=== PATIENT | male | born 1980 | race Caucasian/White ===

== ENCOUNTER 2018-03-19 10:11 | Day surgery (SDC) | payer BC ==
--- NOTE | 2018-03-19 06:30 | HP ---
AMENDED REPORT NOW INCLUDES DESIGNATED COSIGNER PREOPERATIVE HISTORY AND PHYSICAL: DATE OF ADMISSION/SURGERY: 03/19/18 DATE OF OFFICE VISIT/ENCOUNTER: 03/18/18 ATTENDING SURGEON: Xiomara Pickens MD * (DICTATED BY JC TORRES) PROCEDURE: Open reduction internal fixation, right 5th metacarpal. HISTORY OF PRESENT ILLNESS: This is a 37-year-old male, who sustained injury to his right hand about 12 days ago when he punched a desk while playing video games. He initially noticed some deformity and said he somewhat manipulated his finger, which aligned it better; however, he has been having persistent pain, so he went to [facility] today on 03/18/18 and had an x-ray of the hand. X-ray showed a comminuted 5th metacarpal neck fracture with fairly significant displacement. He has been using Advil for pain control. Denies any associated numbness or tingling. This is his dominant hand. He is diabetic and his A1c generally runs between 7.5 and 8. After evaluation by Dr. Pickens and review of x-rays, the patient has consented to proceed with surgical intervention at this time in the form of an ORIF, right 5th metacarpal. PAST MEDICAL HISTORY: 1. Diabetes. 2. Asthma. PAST SURGICAL HISTORY: None. CURRENT MEDICATIONS: 1. Lantus 100 units/mL inject 20 to 25 units b.i.d. 2. NovoLog 100 units/mL before meals per sliding scale. 3. Ventolin asthma inhaler p.r.n. 4. Vitamin D complex. 5. Vitamin D. 6. Nasonex p.r.n. ALLERGIES: Pertussis vaccine causes fever. FAMILY MEDICAL HISTORY: Diabetes, cancer. SOCIAL HISTORY: The patient is employed in [employer]. He is a former smoker. He quit smoking approximately 2 years ago. Prior to that, he smoked from age 19 to age 35, approximately 5 cigarettes a day. He currently is vaping. He denies recreational drug use and does not drink alcohol. REVIEW OF SYSTEMS: Negative for general, cephalic, cardiovascular, respiratory , GI, , other musculoskeletal, integumentary, endocrine, neurologic, and hematologic symptoms. Infectious disease is negative for MRSA, hepatitis C, HIV. PHYSICAL EXAMINATION GENERAL: Well-developed, well-nourished 37-year-old male, in no acute distress. VITAL SIGNS: Height 6 feet 1 inch, weight 220 pounds. Blood pressure 122/78, pulse rate 80. HEENT: Normocephalic, atraumatic. Pupils are equal, round, and reactive to light and accommodation. Throat is clear. NECK: Supple. No palpable lymph nodes. PULMONARY: Lungs are clear to auscultation bilaterally. No wheezes, rales, or rhonchi. CARDIOVASCULAR: Regular rate and rhythm. S1, S2. No murmurs, rubs, or gallops. No edema. ABDOMEN: Positive bowel sounds. Soft, nontender. NEUROLOGICAL: Alert and oriented x3. Cranial nerves II through XII are intact. Sensation is intact to light touch. MUSCULOSKELETAL: On exam of his right hand, he has some resolving ecchymosis on both the dorsal and volar aspect of the hand and the small finger. There is mild swelling. He has an obvious prominence at the fracture site at the 5th metacarpal neck. He lacks a little bit of extension of the finger at the MP joint. He cannot quite make a full fist and there is a slight rotational deformity, but the finger does not underlap under the ring finger. He has tenderness to palpation at the 5th metacarpal neck. Skin is intact. Neurovascular function is intact. IMAGING STUDIES: X-rays, AP, lateral, and oblique of the right hand show a comminuted displaced fracture of the right 5th metacarpal neck. ASSESSMENT: Right 5th metacarpal fracture. PLAN: The patient is scheduled to undergo an open reduction and internal fixation of the right 5th metacarp[address] with Dr. Pickens on 03/19/18. He will return to the office 10 days postop for followup and suture removal. A prescription for Aurora was e-scribed to the patient's pharmacy for postoperative pain management. JC TORRES [id number]/[facility] #: [id number] MTDJohanny
[2018-03-19] MEDS ORDERED: Metoclopramide IV* 5 MG/ML 2 ML VIAL ONE (10:41)
[2018-03-19] MEDS ORDERED: Dexamethasone IV* 4 MG/ML 1 ML (4 MG) ONE (10:41)
[2018-03-19] MEDS ORDERED: ceFAZolin 2 GM PREMIX in ORs 2 GM/50 ML BAG IVPB ONE (10:41)
[2018-03-19] MEDS ORDERED: Midazolam* 1 MG/ML 2 ML VIAL (2 MG) ONE (12:25)
[2018-03-19] MEDS ORDERED: fentaNYL* 50 MCG/ML 2 ML VIAL (100 MCG VIAL) ONE (12:25)
[2018-03-19] MEDS ORDERED: Lidocaine 1% INJ* 10 MG/ML 30 ML SDV ONE (13:00)
[2018-03-19] MEDS ORDERED: ROPIVACAINE 5 MG/ML 30 ML BTL (0.5%) ONE (13:00)
[2018-03-19] MEDS ORDERED: Mepivacaine 2% MPF (20 MG/ML)* 20 ML MPF ONE (13:08)
[2018-03-19] MEDS ORDERED: Mepivacaine 1% (10 MG/ML)* 30 ML SDV ONE (13:09)
[2018-03-19] MEDS ORDERED: Propofol* 10 MG/ML 20 ML BTL IV PUSH ONE ×2 (14:02→14:25)
[2018-03-19 14:53] VITALS: BP 124/73
--- NOTE | 2018-03-20 09:39 | OP ---
DATE OF OPERATION: 03/19/18 [facility] DATE OF : 82 SURGEON: Dr. Pickens. EMBRYOLOGY TEACHER: JC Henderson ANESTHESIA: Block. PRE-OP DIAGNOSIS: Right 5th metacarpal fracture. POST-OP DIAGNOSIS: Right 5th metacarpal fracture. OPERATIVE PROCEDURE: Open reduction internal fixation of the right 5th metacarpal. ESTIMATED BLOOD LOSS: Zero. TOURNIQUET TIME: About 40 minutes. INDICATIONS FOR PROCEDURE: Palmer is a 37-year-old man who punched a desk while playing video games and suffered a fracture of his right 5th metacarpal neck. It is comminuted and displaced. He presents for ORIF. DESCRIPTION OF PROCEDURE: The patient was brought to the operating room and was given a block anesthetic and sedation anesthetic and placed in the supine position on the operating table with the tourniquet was around his right forearm. Skin of his right upper extremity was prepped and draped in the usual sterile fashion. Hand and forearm were exsanguinated and the tourniquet elevated to 250 mmHg. A longitudinal incision was made on the lateral aspect of the 5th metacarpal. There was a branch of the ulnar sensory nerve, which was preserved. The periosteum was incised and the extensor jeter was incised and then we were able to visualize the fracture fragments, which were reduced with traction and manipulation. We then placed a Y shaped plate over the comminuted fracture fragments dorsally, and secured it with 3 distal screws in the metacarpal head and 4 proximal screws. The position of the hardware and fracture fragments was checked on the C-arm in the AP and lateral views and found to be satisfactory. The wound was irrigated. The periosteum was closed over the plate and then the skin edges were reapproximated with 4-0 nylon suture. The wound was dressed with Xeroform, 4x4, Webril, and an ulnar gutter brace. The patient tolerated the procedure well and was brought to the recovery room in good condition. [id number]/[facility] #: [id number] [facility] MEDICAL CENTERJohanny
== END 2018-03-19 15:17 | disposition home or self-care (01) ==
LOC: OREAST 10:11
PROVIDERS: ATTEND Orthopaedic Surgery
DX: S62.336A Displaced fracture of neck of fifth metacarpal bone, right hand, initial encounter for closed fracture (principal); W22.8XXA Striking against or struck by other objects, initial encounter; Y92.9 Unspecified place or not applicable; E11.9 Type 2 diabetes mellitus without complications; Z79.4 Long term (current) use of insulin; J45.909 Unspecified asthma, uncomplicated; Z87.891 Personal history of nicotine dependence
CPT/HCPCS: 76000; C1713; C1776; J0670; J0690; J1100; J2250; J2704; J2765; J2795; J3010

== ENCOUNTER 2019-03-03 10:19 | Emergency (ER) | payer BC ==
[2019-03-03 10:34] VITALS: BP 131/82
--- NOTE | 2019-03-03 10:52 | UC ---
Bite Injury/Animal HPI - HPI Summary HPI Summary: Patient is a 38yo male presenting with dog bite to right fifth finger that happened Sunday night when he was attacked by an unknown dog while walking his own dog. The dog ran off. He was not able to locate it and does not know its vaccination status. Patient states he called the health department who has not gotten back to him. Denies pain, drainage, decreased ROM, swelling, and redness. Denies fever, chills, nausea, and vomiting. States he is up-to-date on his tetanus shot. - History of Current Complaint Chief Complaint: UCBiteInjury Stated Complaint: DOG BITE Severity Initially: Mild Pain Intensity: 1 Pain Scale Used: 0-10 Numeric - Allergies/Home Medications Allergies/Adverse Reactions: Allergies Allergy/AdvReac Type Severity Reaction Status Date / Time pertussis vaccine,adsorbed Allergy SWOLLEN Verified 03/03/19 10:36 JOINTS, HIGH FEVER, THROAT CLOSING PMH/Surg Hx/FS Hx/Imm Hx Previously Healthy: Yes - Surgical History Surgical History: Yes Surgery Procedure, Year, and Place: right hand - 2017 - Family History Known Family History: Positive: Non-Contributory - Social History Alcohol Use: Rare Substance Use Type: None Smoking Status (MU): Former Smoker Review of Systems All Other Systems Reviewed And Are Negative: Yes Constitutional: Positive: Negative. Negative: Fever, Chills Skin: Positive: Other - dog bite right fifth finger. Negative: Bruising ENT: Positive: Negative Respiratory: Positive: Negative Cardiovascular: Positive: Negative Gastrointestinal: Positive: Negative. Negative: Vomiting, Nausea Motor: Positive: Negative. Negative: Decreased ROM Neurovascular: Negative: Decreased Sensation Musculoskeletal: Negative: Arthralgia, Edema Neurological: Negative: Paresthesia, Numbness Physical Exam Triage Information Reviewed: Yes Appearance: Well-Appearing, No Pain Distress, Well-Nourished Vital Signs: Initial Vital Signs Temp 98 F 03/03/19 10:31 Pulse 74 03/03/19 10:31 Resp 15 03/03/19 10:31 BP 131/82 03/03/19 10:31 Pulse Ox 99 03/03/19 10:31 Vital Signs Reviewed: Yes Eyes: Positive: Conjunctiva Clear ENT: Positive: Hearing grossly normal Neck: Positive: Supple Respiratory: Positive: No respiratory distress Cardiovascular: Positive: Pulses Normal - strong radial pulses bilaterally, Brisk Capillary Refill Musculoskeletal Exam: Normal, Other - sensation grossly intact Musculoskeletal: Positive: Strength Intact, ROM Intact, No Edema, Other: - no tenderness to palpation of finger Neurological: Positive: Alert Psychological: Positive: Age Appropriate Behavior Skin: Positive: Other - small 3mm puncture wound over plamar surface of right PIP joint. no drainage, bleeding, erythema, ecchymosis, or warmnth noted Bite Injury Course/Dx - Course Course Of Treatment: PRAVEEN Dye spoke with health Department who advised against rabies prophylaxis today. They stated they will go looking for the dog this afternoon and contact the patient with further information on what to do going forward. I relayed this information to the patient. Educated him on signs and symptoms of infection and to go to the emergency room if he experiences any of them. Treat the patient with Augmentin for infection prophylaxis. Patient voiced understanding and agreed with the treatment plan. - Differential Dx/Diagnosis Provider Diagnosis: Dog bite of finger Discharge ED - Sign-Out/Discharge Documenting (check all that apply): Patient Departure All imaging exams completed and their final reports reviewed: No Studies - Discharge Plan Condition: Stable Disposition: HOME Prescriptions: Amoxicillin/Clavulanate TAB* [Augmentin TAB 875*] 875 mg PO BID #14 tab Patient Education Materials: Animal Bite (ED) Referrals: Jonatan Dallas MD [Primary Care Provider] - If Needed Additional Instructions: As discussed, take Augmentin as prescribed for infection prevention of your dog bite. You may apply warm compresses twice daily. You may take [id number] pain medications as directed for pain relief. The health department advised to hold off on rabies treatment today. They will look for the dog this afternoon and contact you with information on what to do going forward. Go to the emergency room if he experience increased swelling, redness, pain, fever, nausea, vomiting, or drainage from the area. - Billing Disposition and Condition Condition: STABLE Disposition: Home
== END 2019-03-03 11:24 | disposition home or self-care (01) ==
LOC: UCEAST 10:19
DX: S61.256A Open bite of right little finger without damage to nail, initial encounter (principal); Z88.7 Allergy status to serum and vaccine; W54.0XXA Bitten by dog, initial encounter; Y93.K1 Activity, walking an animal; Y92.9 Unspecified place or not applicable
CPT/HCPCS: 99212; G0463